=== PATIENT | male | born 1965 | race Native Hawaiian/Other Pacific Islander ===

== ENCOUNTER 2021-01-21 11:22 | Emergency (ER) | payer OTHER ==
[~2021-01-21] VITALS: Ht 177.8 cm; Wt 81.6 kg
[2021-01-21 12:08] LABS: PLATELET COUNT 179 K/uL (142-355)
[2021-01-21 12:10] LABS: POTASSIUM 3.6 mmol/L (3.6-5.2)
[2021-01-21 15:27] VITALS: BP 138/76; TEMP 98.7
== END 2021-01-21 15:27 | disposition home or self-care (01) ==
LOC: ED 11:22
PROVIDERS: Hospitalist
DX: J18.9 Pneumonia, unspecified organism (principal); R50.9 Fever, unspecified; Z20.822 Contact with and (suspected) exposure to COVID-19; F17.210 Nicotine dependence, cigarettes, uncomplicated
CPT/HCPCS: 80048; 83605; 85027; 87040; 87635; 87651; 96360; 96365; 99284; U0003